=== PATIENT | male | born 1980 | race Caucasian/White ===

== ENCOUNTER 2019-09-04 13:11 | Emergency (ER) | payer OTHER ==
[2019-09-04 13:20] VITALS: BP 164/93; PULSE 71; RESP 20; TEMP 97.6
--- NOTE | 2019-09-04 14:31 | XR ---
Bilateral hands HISTORY: Trauma and pain 3 views of each hand are submitted on a total 6 images Bone mineralization, joint spaces and alignment are maintained. IMPRESSION: No fracture or dislocation of either hand
[2019-09-04] MEDS ORDERED: DIPH,PERTUS(ACELL)TETVAC-LF 0.5 ML VIAL IM ONE (14:38)
--- NOTE | 2019-09-04 14:46 | ED ---
Upper Extremity HPI - General Chief Complaint: Extremity Injury, Upper Stated Complaint: Finger Injury Time Seen by Provider: 09/04/19 13:55 Source: patient Mode of arrival: ambulatory Limitations: no limitations - History of Present Illness Initial Comments: Patient is a 39-year-old male who presents to the emergency department today for evaluation with chief complaint of crush injury to left and right second and third digits bilaterally. Patient reports he was at work and his fingers were crushed with a drill press. He reports small abrasion over the dorsum of both fingers bilaterally. Patient reports he has full range of motion. He was sent here for work for [employer] evaluation. Patient states she has normal sensation of fingers and again has full range of motion. - Related Data Allergies Allergy/AdvReac Type Severity Reaction Status Date / Time No Known Allergies Allergy Verified 09/04/19 13:19 Review of Systems ROS Statement: Those systems with pertinent positive or pertinent negative responses have been documented in the HPI. ROS Other: All systems not noted in ROS Statement are negative. Past Medical History Past Medical History: No Reported History History of Any Multi-Drug Resistant Organisms: None Reported Past Surgical History: No Surgical Hx Reported Past Psychological History: No Psychological Hx Reported Smoking Status: Never smoker Past Alcohol Use History: Occasional Past Drug Use History: None Reported General Exam - General Exam Comments Initial Comments: This is an alert and oriented 39-year-old male. No distress. Limitations: no limitations General appearance: alert, in no apparent distress Head exam: Present: atraumatic, normocephalic, normal inspection Eye exam: Present: normal appearance, PERRL, EOMI. Absent: scleral icterus, conjunctival injection, periorbital swelling ENT exam: Present: normal exam, mucous membranes moist Neck exam: Present: normal inspection. Absent: tenderness, meningismus, lymphadenopathy Respiratory exam: Present: normal lung sounds bilaterally. Absent: respiratory distress, wheezes, rales, rhonchi, stridor Cardiovascular Exam: Present: regular rate, normal rhythm, normal heart sounds. Absent: systolic murmur, diastolic murmur, rubs, gallop, clicks GI/Abdominal exam: Present: soft, normal bowel sounds. Absent: distended, tenderness, guarding, rebound, rigid Extremities exam: Present: normal inspection, full ROM, normal capillary refill, other (Patient is small abrasion measuring each less than 1 cm over the DIP of the second and third digit of left and right hand. He has full range of motion. Normal sensation distally. Capillary refill is less than 2 seconds.). Absent: tenderness, pedal edema, joint swelling, calf tenderness Back exam: Present: normal inspection Neurological exam: Present: alert, oriented X3, CN II-XII intact Psychiatric exam: Present: normal affect, normal mood Skin exam: Present: warm, dry, intact, normal color. Absent: rash Course Vital Signs 09/04/19 13:16 Temperature 97.6 F Pulse Rate 71 Respiratory 20 Rate Blood Pressure 164/93 O2 Sat by Pulse 98 Oximetry Medical Decision Making - Medical Decision Making 39-year-old male presented today for eval for concern for crush injury to the second and third digit bilaterally from work. He had a drill press but crushes beers. Is a small abrasion over the second and third digit bilaterally. This was cleaned with alcohol swab and then fell with antibiotic ointment and bandage was placed. He has full range of motion and sensation of the fingers. I discussed that likely contusion Patient now Motrin Tylenol for pain. X-ray shows no evidence of fracture or dislocation. Discussed return parameters and PCP follow-up. - Radiology Data Radiology results: report reviewed No fracture dislocation of either hand. Disposition Clinical Impression: Finger contusion, Crush injury to finger Disposition: HOME SELF-CARE Condition: Good Instructions (If sedation given, give patient instructions): Hematoma (ED) Additional Instructions: Patient should take Motrin or Tylenol for pain. Ice the fingers. Monitor for any infection including redness swelling or drainage. Is patient prescribed a controlled substance at d/c from ED?: No Referrals: None,Stated [Primary Care Provider] - 1-2 days Time of Disposition: 14:45
== END 2019-09-04 15:08 | disposition home or self-care (01) ==
LOC: EC 13:11
DX: S67.191A Crushing injury of left index finger, initial encounter (principal); S67.193A Crushing injury of left middle finger, initial encounter; S67.190A Crushing injury of right index finger, initial encounter; S67.192A Crushing injury of right middle finger, initial encounter; Z23 Encounter for immunization; W31.0XXA Contact with mining and earth-drilling machinery, initial encounter; Y92.69 Other specified industrial and construction area as the place of occurrence of the external cause; Y99.0 Civilian activity done for income or pay
CPT/HCPCS: 90471; 90715; 99283